=== PATIENT | female | born 1985 | race Caucasian/White ===

== ENCOUNTER 2016-11-17 07:15 | Day surgery (SDC) | payer MEDICAID ==
[2016-11-09 16:41] VITALS: BMI 21.2
[2016-11-17 08:11] VITALS: O2SAT 100
[2016-11-17] MEDS ORDERED: Lactated Ringer's 1,000 ML IV ONE ×3 (08:44→10:50)
[2016-11-17] MEDS ORDERED: Propofol 10 mg/ml Inj (20 ML) ONE (08:45)
[2016-11-17] MEDS ORDERED: Midazolam 2 MG/2 ML VIAL ONE (08:46)
[2016-11-17] MEDS: ceFAZolin IV 1 gm in Dextrose 1 GM/50 ML BAG IVPB ONE ×2 (08:46→09:25)
[2016-11-17] MEDS ORDERED: Bupivacaine HCl 0.25% PF (10 ml) Inj ONE (08:46)
[2016-11-17] MEDS ORDERED: Rocuronium 10 mg/ml (5 ml) ONE (08:47)
[2016-11-17] MEDS ORDERED: Bupivacaine HCl 0.5% PF (10 ml) Inj ONE (08:53)
[2016-11-17] MEDS: Bupivacaine HCl 0.5% PF (10 ml) Inj ONE ×2 (09:30→09:39)
[2016-11-17] MEDS ORDERED: Neostigmine Methylsulfate 3mg/3ml Syringe IV ONE (09:41)
--- NOTE | 2016-11-17 10:53 | PCM.SURG1 ---
Surgeon's Initial Post Op Note - Surgeon's Notes Surgeon: dr andres Berry Picker: dr plaza Type of Anesthesia: General LMA Anesthesia Administered By: dr oglesby Pre-Operative Diagnosis: multiparity/sterlisaztion Operative Findings: see the op report Post-Operative Diagnosis: same wirh omental adhesions Operation Performed: laprscopic b/l tubal ligation with cautery, shravan Specimen/Specimens Removed: none Estimated Blood Loss: EBL {In ML}: 20 Blood Products Given: N/A Drains Used: No Drains Post-Op Condition: Good Date of Surgery/Procedure: 11/17/16 Time of Surgery/Procedure: 10:45
--- NOTE | 2016-11-17 11:37 | OP ---
PROCEDURE DATE: 11/17/2016 PREOPERATIVE DIAGNOSIS: A 31-year-old 3, para 2, here for multiparity, requests permanent st erilization. SURGEON: Rasheed Murray MD [employer]MENT[employer] APPRENTICE SURGEON: Dr. Camilo, who was present throughout the surgery for exposure and helping with th e camera and retraction. ANESTHESIA: General anesthesia. ANESTHESIOLOGIST: Dr. Calix. COMPLICATIONS: None. ESTIMATED BLOOD LOSS: 20 mL. PROCEDURES PERFORMED: Bilateral laparoscopic tubal ligation and lysis of adhesions. PROCEDURE: After informed consent was obtained, the patient was brought to the operating room, place d on the table where general anesthesia was given. When anesthesia was found to be adequate, she was prepped and draped in a normal sterile fashion. Examination performed, found uterus to be 8 weeks' size, no ____ adnexal masses. After that, anterior lip of the cervix was grasped with a tenaculum. HUMI catheter was inserted. Miller catheter was inserted too, and then the tenaculum was removed. Af ter that, attention was towards the patient's abdomen and belly, then 10 mL of Marcaine was done. Af ter that, the incision was made at the umbilicus, and then the fascia was lifted up with a Lauren's. It was cut and then it was tied up with a 2-0 Vicryl stitch, then the peritoneum was excised. Intra abdominal Jose was placed ____ using gas, and we saw that there was an omental adhesion coming from the anterior wall of the abdomen to the pelvis. Then the 5 mm port was placed on the left side. Af ter giving 5 mm port, after that the adhesion on the left side was taken with LigaSure because it was hindering the view. The omental adhesion was taken out; it was not bleeding, it was hemostatic. Af ter that both the tubes and ovaries were visualized. The LigaSure was used to do the tubal ligation. First, the tubal ligation was done on under the cautery and coagulation, and the cut was used while LigaSure on the left side and then the right side. It was hemostatic, no bleeding. Omental was vis ualized and there was no bleeding. After that, the decision was made to close. All the ports were r emoved. The gas was stopped. The patient tolerated the procedure well. The HUMI was removed and th e catheter was removed. The patient tolerated the procedure. Lap, sponge and instruments correct x 2. Rasheed Murray MD cc: [id number] TT: 11/17/2016 11:37:12 mn
[2016-11-17 11:57] VITALS: RESP 18
[2016-11-17 13:02] VITALS: BP 113/77; PULSE 67; TEMP 98
== END 2016-11-17 12:35 | disposition home or self-care (01) ==
LOC: C.SDS 07:15
PROVIDERS: ATTEND Obstetrics & Gynecology
DX: Z30.2 Encounter for sterilization (principal)
CPT/HCPCS: 58670; 82948; J0690; J1885; J2250; J2270; J2405; J2704; J2710; J3010; J7120